=== PATIENT | female | born 1985 | race Hispanic/Latino ===

== ENCOUNTER 2017-03-11 11:44 | Outpatient (CLI) | payer MEDICAID ==
[2017-03-11 12:11] VITALS: BP 109/59
--- NOTE | 2017-03-11 13:24 | Event Note ---
Date: 03/11/17 BPP 6/8 Reactive NST total score 8/10 Pt d/c home with specific instructions for FKC, hydration, rest. Call with ctx, LOF, bleeding IOL scheduled Pt is aware.
--- NOTE | 2017-03-11 14:06 | Ultrasound Report ---
BIOPHYSICAL PROFILE: INDICATION: well being. COMPARISON: None similar. TECHNIQUE: Transabdominal ultrasound with Doppler interrogation. 0 - breathing movements 2 - movements 2 - posture and tone 2 - Qualitative amniotic fluid volume 6 - TOTAL SCORE OF POSSIBLE 8 Heart Rate (bpm) 124
--- NOTE | 2017-03-11 14:07 | Ultrasound Report ---
OB LIMITED INDICATION: well being. COMPARISON: None similar at this institution. TECHNIQUE: Transabdominal grayscale ultrasound with Doppler interrogation. Gestation: Adames Position: Cephalic Amniotic Fluid: WNL (7-24 cm) RAGHAVENDRA = 13.7 cm Heart Rate: 134 BPM
== END 2017-03-11 13:30 | disposition home or self-care (01) ==
LOC: TRG 11:44
PROVIDERS: ATTEND Obstetrics & Gynecology
DX: O48.0 Post-term pregnancy (principal); Z3A.41 41 weeks gestation of pregnancy
CPT/HCPCS: 59025; 76815; 76819

== ENCOUNTER 2017-03-12 11:47 | Inpatient (IN) | payer MEDICAID ==
[2017-03-12] MEDS ORDERED: ePHEDrine SULFATE IV PRN ×2 (11:50→13:48)
[2017-03-12] MEDS ORDERED: MINERAL OIL PO PRN (11:50)
[2017-03-12] MEDS ORDERED: ZOFRAN IV PRN (11:50)
[2017-03-12] MEDS ORDERED: XYLOCAINE 2% INFILTRATI ONE (11:50)
[2017-03-12] MEDS ORDERED: BRETHINE SUB-Q PRN (11:50)
[2017-03-12] MEDS ORDERED: SUBLIMAZE IV PRN (11:50)
[2017-03-12] MEDS ORDERED: PITOCin/NS 20 UNIT/1000ML DRIP 20 UNITS/1,000 ML BAG IV SCH (12:00)
--- NOTE | 2017-03-12 12:01 | History and Physical Report ---
History of Present Illness Date of examination: 03/12/17 (41w in early labor) Date of admission: 03/12/17 11:48 Chief complaint: spotting and contractions History of present illness: Past History : 4 Term Births: 3 Living Children: 3 Para: 3 # 1 Delivery date: 2004 Weeks Gestation: term Delivery type: vac Anesthesia type: epidural Delivery location: [facility] Infant Sex: Male weight: 9-2 Comments: vacuum extraction # 2 Delivery date: 2006 Weeks Gestation: term Delivery type: Anesthesia type: epidural Delivery location: [facility] Sex: Female weight: 9-12 Comments: denies complications # 3 Delivery date: 2007 Weeks Gestation: term Delivery type: Anesthesia type: epidural Delivery location: [facility] Sex: Male weight: 9-0 Comments: denies complication delivered this baby Past Medical History: Anxiety Depression Past Surgical History: Negative Past Surgical History Past Medical History 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 of genital herpes: no Partner hx. of genital herpes: no Rash, Viral, or Febrile illness since last LMP? no Varicella/Chicken Pox Status: Previous Disease TB Risk: no Genetic History Congenital Heart Defect: Mom: no Dad: no Manolo Disease: Mom: no Dad: no Thalassemia Mom: no Dad: no Neural Tube Defect Mom: no Dad: no Down's Syndrome Mom: no Dad: no Carlton-Sachs Mom: no Dad: no Sickle Cell Disease/Trait Mom: no Dad: no Hemophilia Mom: no Dad: no Muscular Dystrophy Mom: no Dad: no Cystic Fibrosis Mom: no Dad: no [place] Chorea Mom: no Dad: no Mental Retardation Mom: no Dad: no Fragile X Mom: no Dad: no Other Genetic/Chromosomal Disorder Mom: no Dad: no Child w/other defect Mom: no Dad: no Enviromental Exposures Xray Exposure: no Medication, drug, or alcohol use since LMP: no Chemical/Other Exposure: no Exposure to Cat Liter: no Hx of Parvovirus (Fifth Disease): no Occupational Exposure to Children: none Active Medications (reviewed today): None Current Allergies (reviewed today): No known allergies Laboratory Results Date/Time Collected: 09/03/2016 Routine Urinalysis Leukocytes: negative Nitrite: negative Urobilinogen: negative Protein: Negative Blood: negative Ketone: negative Bilirubin: negative Glucose: Negative Urine HCG: positive Review of Systems General Denies fever, chills, sweats, anorexia, fatigue, weakness, malaise, weight loss and sleep disorder. Denies nausea, vomiting, headache, swelling of legs, abdominal pain, vaginal discharge, vaginal bleeding and contractions. Denies vaginal discharge, incontinence, dysuria, hematuria, urinary frequency, amenorrhea, menorrhagia, abnormal vaginal bleeding, pelvic pain, genital sores, decreased libido, painful periods, painful sex, urinary urgency, hot flashes, vaginal dryness, vaginal itching and vaginal odor. CV Denies chest pains, palpitations, syncope, dyspnea on exertion, orthopnea, PND and peripheral edema. Resp Denies cough, dyspnea at rest, excessive sputum, hemoptysis, wheezing and pleurisy. GI Denies nausea, vomiting, diarrhea, constipation, change in bowel habits, abdominal pain, melena, hematochezia, jaundice, gas/bloating, indigestion/ heartburn, dysphagia and odynophagia. Endo Denies cold intolerance, heat intolerance, polydipsia, polyphagia, polyuria and unusual weight change. Breast Denies left breast lump, right breast lump, nipple discharge, bloody discharge from nipple, breast pain, abnormal mammogram and breast enlargement. MS Denies back pain, joint pain, joint swelling, muscle cramps, muscle weakness, stiffness, arthritis, sciatica, restless legs, leg pain at night and leg pain with exertion. Derm Denies rash, itching, dryness and suspicious lesions. Neuro Denies paralysis, paresthesias, headache, seizures, tremors, vertigo, transient blindness, frequent falls, frequent headaches and difficulty walking. Psych Denies depression, anxiety, irritability and mood swings. Eyes Denies blurring, diplopia, irritation, discharge, vision loss, eye pain and photophobia. ENT Denies earache, ear discharge, tinnitus, decreased hearing, nasal congestion, nosebleeds, sore throat and hoarseness. Allergy Denies urticaria, allergic rash, hay fever and recurrent infections. Heme Denies abnormal bruising, bleeding and enlarged lymph nodes. Past History - Obstetrical History Expected Date of Delivery: 03/05/17 Actual Gestation: 41 Week(s) 0 Day(s) : 4 Para: 3 Hx # Term Pregnancies: 3 Number of Living Children: 3 Medications and Allergies Allergies Allergy/AdvReac Type Severity Reaction Status Date / Time No Known Allergies Allergy Verified 03/11/17 11:49 Home Medications Medication Instructions Recorded Confirmed Last Taken Type No Known Home Medications [No 03/12/17 03/12/17 Unknown History Reported Home Medications] - Physical Exam Breasts: Positive: deferred Cardiovascular: Regular rate Lungs: Positive: Clear to auscultation, Normal air movement Abdomen: Positive: normal appearance, soft, normal bowel sounds Genitourinary (Female): Positive: normal external genitalia Vulva: both: normal Vagina: Positive: normal moisture Uterus: Positive: normal size, normal contour Anus/Rectum: Positive: normal perianal skin Extremities: Positive: normal Deep Tendon Reflex Grade: Dull/Diminished +1 - Obstetrical FHR: category 1 Uterine Contraction Monitor Mode: External Cervical Dilatation: 4 Cervical Effacement Percentage: 70 station: -3 Uterine Contraction Pattern: Irregular Uterine Contraction Intensity: Mild Results Result Diagrams: 03/12/17 12:15 All other labs normal. Lab Monitoring, Entry, and Tracking Initial Lab: TEST VALUE DATE REVIEWED Blood Type: O+ 08/13/2016 D (Rh) Type: + 08/13/2016 Antibody screen: negative 08/13/2016 Hgb: 11.6 08/13/2016 Hct: 34.2 08/13/2016 Rubella: immune 08/13/2016 VDRL: negative 08/13/2016 HBsAg: negative 08/13/2016 Laboratory Data-Patient Name: KIMI WILSON Test Date Result Blood Type Rh 08/13/2016 + Antibody Screen Rubella 08/13/2016 Serology (RPR) 08/13/2016 HBsAg 08/13/2016 negative Hemoglobin 12/03/2016 10.9 Hematocrit 12/03/2016 33.3 Platelets Chlamydia DNA 09/03/2016 Negative GC DNA/Culture 09/03/2016 Urine Culture Group B Strep cult PAP HIV 10/22/2016 negative AFP/Quad Screen 09/29/2016 Glucola Test 3hr GTT (Fasting) 1 hr 2 hr 3 hr [facility]-Patient Name:KIMI WILSON Test Date Result Varicella Ab Sickle Cell PPD Fibronectin Cystic Fibrosis Parvovirus TSH Free T4 Hepatitis C ALT AST Uric Acid Creatinine 24 hr Urine Protein BART Assessment and Plan 31yo @ 41 weeks in active labor GBS negative Orders in EMR Anticipate delivery
[2017-03-12] MEDS: LACTATED RINGERS 1,000 ML IV SCH ×2 (12:30→13:23)
[2017-03-12 12:32] LABS: Hematocrit 33.1 % (30.3-42.9); Hemoglobin 11.4 gm/dl (10.1-14.3); Mean Corpuscular HGB Conc 34 % (30-34); Mean Corpuscular Hemoglobin 33 pg (28-32); Mean Corpuscular Volume 95 fl (79-97); Platelet Count 218 K/mm3 (140-440); Red Cell Distribution Width 13.7 % (13.2-15.2); White Blood Count 8.5 K/mm3 (4.5-11.0)
[2017-03-12] MEDS: PITOCin/NS 30 UNIT/500ML 30 UNITS/500 ML BAG IV SCH ×2 (12:40→13:15)
[2017-03-12] MEDS ORDERED: ePHEDrine SULFATE ONE (13:10)
[2017-03-12] MEDS ORDERED: fentaNYL-BUPIV 2 MCG/ML-0.125% 200 MCG/100 ML BAG EPIDURAL ONE (13:35)
[2017-03-12] MEDS ORDERED: XYLOCAINE MPF 2% ONE (13:36)
[2017-03-12] MEDS ORDERED: NARCAN 2 MG/2 ML IV PRN (13:48)
--- NOTE | 2017-03-12 13:48 | Anesthesia Consultation ---
Anesthesia Consult and Med Hx Date of service: 03/12/17 - Airway Anesthetic Teeth Evaluation: Good ROM Head & Neck: Adequate Mental/Hyoid Distance: Adequate Mallampati Class: Class II Intubation Access Assessment: Probably Good - Pre-Operative Health Status ASA Pre-Surgery Classification: ASA2 Proposed Anesthetic Plan: Epidural, Spinal - Pulmonary Hx Asthma: No COPD: No Hx Pneumonia: No - Cardiovascular System Hx Hypertension: No - Central Nervous System Hx Seizures: No Hx Psychiatric Problems: No - Endocrine Hx Renal Disease: No Hx End Stage Renal Disease: No Hx Hypothyroidism: No Hx Hyperthyroidism: No - Hematic Hx Anemia: Yes (Prev preganancies) Hx Sickle Cell Disease: No - Other Systems Hx Alcohol Use: No
[2017-03-12] MEDS ORDERED: fentaNYL-BUPIV 2 MCG/ML-0.125% 200 MCG/100 ML BAG EPIDURAL SCH (14:00)
--- NOTE | 2017-03-12 16:48 | Procedure Note ---
OB Delivery Note - Delivery Date of Delivery: 03/12/17 Lathe Setup Operator: RUBIN ARIAS Estimated blood loss: 300cc - Vaginal Delivery presentation: vertex Delivery position: OA Intrapartum events: meconium Delivery induction: none Delivery augmentation: pitocin Delivery monitor: external FHT, external uterine Route of delivery: Delivery placenta: spontaneous Delivery cord: nuchal cord, 3 umbilical vessels Episiotomy: none Delivery laceration: 1st degree (no repair) Anesthesia: epidural Delivery comments: live born female over intact perineum CAN X 1 reduced, terminal meconium noted with delivery. Baby to mom's abdomen Slow to respond RT called to eval baby Cord blood obt Placenta and membrane del complete and intact, 3 vessel cord. Pitocin IVFs 7/8, EBL 300, Wgt 8-2. 1st degree lac on perineum, no repair. Mom and baby remain LDR stable. - Infant A at 1 minute: 7 at 5 minutes: 8 Gender: Female (wgt 8-2)
[2017-03-12] MEDS ORDERED: MILK OF MAGNESIA PO PRN (18:44)
[2017-03-12] MEDS ORDERED: BENADRYL PO PRN (18:44)
[2017-03-12] MEDS ORDERED: TUCKS PAD TP PRN (18:44)
[2017-03-12] MEDS ORDERED: DERMOPLAST TP PRN (18:44)
[2017-03-12] MEDS ORDERED: TYLENOL PO PRN (18:44)
[2017-03-12] MEDS ORDERED: PHENERGAN PO PRN (18:44)
[2017-03-12] MEDS ORDERED: LANSINOH TP PRN (18:44)
[2017-03-12] MEDS ORDERED: DULCOLAX PR PRN (18:44)
[2017-03-12] MEDS ORDERED: SODIUM CHLORIDE FLUSH SYRINGE 10 ML IV NR (19:00)
[2017-03-12] MEDS ORDERED: MOTRIN PO SCH (19:00)
[2017-03-12] MEDS ORDERED: MOTRIN PO PRN (19:22)
[2017-03-12] MEDS: MOTRIN PO SCH (19:29)
[2017-03-12] MEDS ORDERED: COLACE PO SCH (22:00)
[2017-03-13] MEDS: MOTRIN PO SCH ×2 (04:48→14:25)
[2017-03-13] MEDS ORDERED: BOOSTRIX IM ONE (06:00)
[2017-03-13 06:21] LABS: Hematocrit 29.7 % (30.3-42.9); Hemoglobin 10.1 gm/dl (10.1-14.3)
--- NOTE | 2017-03-13 08:07 | Progress Note ---
Assessment and Plan Patient doing well, w/o complaints. requests d/c home today. Janethti janet, H& H 10.1/29.7 (anemia d/t blood loss at delivery), VSSAF. Plan for d/c home with routine f/u in office. - Patient Problems (1) Spontaneous vaginal delivery Current Visit: Yes Status: Acute Subjective - Subjective Date of service: 03/13/17 Principal diagnosis: day #1 s/p Patient reports: appetite normal, voiding normally, pain well controlled, ambulating normally, no dizzy ambulation, no nauseated [place]: doing well, bottle feeding Objective - Vital Signs Latest vital signs: Vital Signs Temp Pulse Pulse Resp BP BP Pulse Ox 03/13/17 04:35 98.0 F 95 H 20 126/63 03/13/17 00:00 97.4 F L 76 20 116/53 03/12/17 19:30 98.3 F 85 20 129/69 03/12/17 19:29 20 03/12/17 16:47 65 123/56 03/12/17 16:17 97.9 F 75 125/68 120/57 03/12/17 15:52 86 120/57 03/12/17 15:46 99 H 116/59 03/12/17 15:34 95 H 99 03/12/17 15:29 78 98 03/12/17 15:24 102 H 99 03/12/17 15:19 92 H 98 03/12/17 15:17 80 115/58 03/12/17 15:14 79 97 03/12/17 15:09 87 97 03/12/17 14:48 93 H 119/56 03/12/17 14:30 79 100 03/12/17 14:25 74 98 03/12/17 14:20 71 98 03/12/17 14:18 72 119/57 03/12/17 14:15 69 98 03/12/17 14:10 70 99 03/12/17 14:05 76 100 03/12/17 14:00 68 99 03/12/17 13:55 72 99 03/12/17 13:50 75 99 03/12/17 13:48 18 123/71 03/12/17 13:45 72 123/71 98 03/12/17 13:43 85 125/63 03/12/17 13:41 74 121/56 03/12/17 13:40 75 98 03/12/17 13:39 62 119/56 03/12/17 13:37 80 120/62 03/12/17 13:35 67 120/62 98 03/12/17 13:33 71 117/64 03/12/17 13:31 72 116/58 03/12/17 13:30 71 126/57 98 03/12/17 13:27 71 114/61 03/12/17 13:26 119/63 03/12/17 13:25 73 107/65 03/12/17 13:24 69 99 03/12/17 13:23 68 119/63 03/12/17 13:21 80 123/92 03/12/17 13:19 72 98 03/12/17 12:30 18 03/12/17 12:05 97.6 F 18 155/65 03/12/17 11:58 88 155/65 99 Intake and Output 03/12/17 03/13/17 03/13/17 22:59 06:59 14:59 Intake Total 240 360 Output Total 1000 600 Balance -760 -240 Intake: Oral 240 360 Output: Urine 1000 600 Indwelling Catheter 200 Void 800 600 Other: Total, Intake Amount 240 120 Total, Output Amount 800 600 Estimated Blood Loss 300 - Exam Breasts: Present: normal Cardiovascular: Present: Regular rate Lungs: Present: Clear to auscultation, Normal air movement Abdomen: Present: normal appearance, soft, normal bowel sounds Vulva: both: laceration/episiotomy Uterus: Present: normal, firm, fundal height at umbilicus Extremities: Present: normal Incision: Present: normal, dry, intact - Labs Labs: Abnormal lab results 03/12/17 03/13/17 Range/Units 12:15 06:00 RBC 3.50 L (3.65-5.03) M/mm3 Hct 29.7 L (30.3-42.9) % MCH 33 H (28-32) pg
--- NOTE | 2017-03-13 08:09 | Discharge Summary ---
Providers - Providers Date of Admission: 03/12/17 11:48 Date of discharge: 03/13/17 (desires d/c home) Attending physician: DUKE GORE Primary care physician: DUKE GORE Hospitalization Reason for admission: active labor Delivery: Episiotomy: none Laceration: 1st degree Incision: normal, dry, intact Other procedures: none complications: none Discharge diagnosis: IUP at term delivered [place] baby: female Hospital course: uncomplicated vaginal Condition at discharge: Good Disposition: DISCHARGED TO HOME OR SELFCARE - Discharge Diagnoses (1) Spontaneous vaginal delivery Status: Acute Plan - Provider Discharge Summary Activity: routine, no sex for 6 weeks, no heavy lifting 4 weeks, no strenuous exercise Diet: routine Instructions: routine Additional instructions: [] Smoking cessation referral if applicable(refer to patient education folder for contact #) [] Refer to [facility]'s [facility] Booklet Call your doctor immediately for: * Fever > 100.5 * Heavy vaginal bleeding ( >1 pad per hour) * Severe persistent headache * Shortness of breath * Reddened, hot, painful area to leg or breast * Drainage or odor from incision. * Keep incision clean and dry at all times and follow doctor's instructions regarding bathing/showering - Follow up plan Follow up: DUKE GORE MD [Primary Care Provider] - 04/13/17 (Congratulations! Please call [phone] to schedule your visit in 4 weeks. Call for any questions or concerns.)
[2017-03-13] MEDS: NORCO 5/325 PO PRN ×2 (08:52→14:24)
--- NOTE | 2017-03-13 15:34 | Progress Note ---
Subjective Date of service: 03/13/17 Principal diagnosis: day #1 s/p Interval history: no anesthetic complications, ptn ambulating Objective - Constitutional Vitals: Vital Signs - 12hr 03/13/17 03/13/17 04:35 08:29 Temperature 98.0 F 97.7 F Pulse Rate [ 95 H 70 Right] Respiratory 20 20 Rate Blood Pressure 126/63 108/56 [Left Arm] - Labs CBC & Chem 7: 03/13/17 06:00 Labs: Abnormal lab results 03/13/17 Range/Units 06:00 Hct 29.7 L (30.3-42.9) %
[2017-03-13 18:28] VITALS: BP 108/58
[2017-03-13] MEDS ORDERED: M-M-R II VACCINE SUB-Q ONE (18:44)
== END 2017-03-13 18:10 | disposition home or self-care (01) | DRG 775 ==
LOC: TRG 11:47 → LD 11:48 → OB 17:51
PROVIDERS: ADMIT Obstetrics & Gynecology; ATTEND Obstetrics & Gynecology
PROC: 10E0XZZ Delivery of Products of Conception, External Approach (ICD-10-PCS; principal; 2017-03-12)
PROC: 00HU33Z Insertion of Infusion Device into Spinal Canal, Percutaneous Approach (ICD-10-PCS; 2017-03-12)
PROC: 3E0R3CZ (ICD-10-PCS; 2017-03-12)
DX: O69.81X0 Labor and delivery complicated by cord around neck, without compression, not applicable or unspecified (principal); O77.0 Labor and delivery complicated by meconium in amniotic fluid; O99.344 Other mental disorders complicating childbirth; F41.9 Anxiety disorder, unspecified; F32.9 Major depressive disorder, single episode, unspecified; O70.0 First degree perineal laceration during delivery; O90.81 Anemia of the puerperium; D64.9 Anemia, unspecified; Z3A.41 41 weeks gestation of pregnancy; Z37.0 Single live birth
CPT/HCPCS: 36415; 85014; 85018; 85027; 86592; 86850; 86900; 86901; 88307; 90715; J2590; J3010; J7120

== ENCOUNTER 2022-01-16 06:47 | Day surgery (SDC) | payer MEDICAID ==
[~2022-01-16 06:47] MED LIST: LACTATED RINGERS 1,000 ML IV SCH; MIDAZOLAM 2 MG/2 ML INJ IV NR; SCOPOLAMINE TRANSDERMAL PATCH 72 HR TD NR
--- NOTE | 2022-01-16 07:55 | Anesthesia Consultation ---
Anesthesia Consult and Med Hx Date of service: 01/16/22 - Airway Anesthetic Teeth Evaluation: Chipped (bottom left molar ) ROM Head & Neck: Adequate Mental/Hyoid Distance: Adequate Mallampati Class: Class II Intubation Access Assessment: Probably Good - Pulmonary Exam CTA: Yes - Cardiac Exam Cardiac Exam: RRR - Pre-Operative Health Status ASA Pre-Surgery Classification: ASA1 Proposed Anesthetic Plan: General - Pulmonary Hx Smoking: No Hx Asthma: No COPD: No Hx Pneumonia: No Hx Sleep Apnea: No - Cardiovascular System Hx Hypertension: No - Central Nervous System Hx Neuromuscular Disorder: No Hx Seizures: No Hx Psychiatric Problems: Yes (severe anxiety) - Gastrointestinal Hx Gastroesophageal Reflux Disease: Yes (occcasional with certain foods) - Endocrine Hx Renal Disease: No Hx Liver Disease: No Hx Non-Insulin Dependent Diabetes: No Hx Thyroid Disease: No - Hematic Hx Anemia: Yes (resolved) Hx Sickle Cell Disease: No - Other Systems Hx Alcohol Use: No Hx Substance Use: No Hx Cancer: No Hx Obesity: No - Additional Comments Anesthesia Medical History Comments: no hx of anesthetic complications
--- NOTE | 2022-01-16 07:56 | Anesthesia Day of Surgery ---
Anesthesia Day of Surgery - Day of Surgery Patient Examined: Yes Patient H&P Reviewed: Yes Patient is NPO: Yes
--- NOTE | 2022-01-16 08:07 | History and Physical Report ---
History of Present Illness Date of examination: 01/16/22 Date of admission: 01/16/2022 Chief complaint: Here for D&C History of present illness: Patient is a with missed AB at 7w4d presenting for dilation and curettage. Voices no complaints. Denies abdominal pain and vaginal bleeding. Past History Past Medical History: other (anxiety, depression) Past Surgical History: no surgical history Family/Genetic History: none Social history: no significant social history - Obstetrical History : 7 Para: 6 Hx # Term Pregnancies: 6 Number of Pregnancies: 0 Spontaneous Abortions: 0 Induced : 0 Number of Living Children: 6 Medications and Allergies Allergies Allergy/AdvReac Type Severity Reaction Status Date / Time No Known Allergies Allergy Verified 01/14/22 16:30 Home Medications Medication Instructions Recorded Confirmed Last Taken Type Sertraline [Zoloft] 50 mg PO QDAY 01/14/22 01/14/22 Unknown History Active Meds: Active Medications Lactated Ringer's (Lactated Ringers) 1,000 mls @ 100 mls/hr IV DIRECT BASILIA Stop: 01/16/22 23:59 Midazolam HCl (Midazolam 2 Mg/2 Ml Inj) 2 mg IV PREOP NR Stop: 01/16/22 23:01 Scopolamine (Scopolamine Transdermal Patch 72 Hr) 1 each TD PREOP NR Stop: 01/16/22 23:00 Review of Systems Psychiatric: anxiety - Physical Exam Cardiovascular: Regular rate Lungs: Positive: Normal air movement Abdomen: Positive: normal appearance, soft Extremities: Positive: normal Results All other labs normal. Assessment and Plan - Patient Problems (1) Missed Current Visit: Yes Status: Acute Plan to address problem: Patient previously counseled on expectant, medical and surgical management. Desires to proceed with surgical management Risk of procedure reviewed including pain, bleeding, damage to surrounding tissues and structures, uterine perforation, need for further procedures. Procedure consents signed Prophylactic antibiotics ordered
[2022-01-16] MEDS ORDERED: propofoL 200 MG/20 ML VIAL IV ONE ×2 (08:13→08:29)
[2022-01-16] MEDS ORDERED: fentaNYL 100 MCG/2 ML INJ ONE (08:13)
[2022-01-16] MEDS ORDERED: LIDOCAINE MPF (2%) 20 MG/1 ML VIAL 5 ML ONE (08:13)
[2022-01-16] MEDS ORDERED: METHYLERGONOVINE MALEATE 0.2 MG/ML VIAL IM ONE ×2 (08:14→08:55)
[2022-01-16] MEDS ORDERED: MIDAZOLAM 2 MG/2 ML INJ ONE (08:18)
[2022-01-16 08:20] LABS: Hematocrit 36.6 % (30.3-42.9); Mean Corpuscular HGB Conc 33 % (30-34); Mean Corpuscular Volume 91 fl (79-97); Platelet Count 257 K/mm3 (140-440); Red Blood Count 4.01 M/mm3 (3.65-5.03); Red Cell Distribution Width 13.7 % (13.2-15.2)
[2022-01-16] MEDS ORDERED: HYDROcodone/ACETAMINOPHEN 5-325 MG TAB PO PRN (08:31)
[2022-01-16] MEDS ORDERED: ONDANSETRON 4 MG/2 ML INJ IV PRN (08:31)
[2022-01-16] MEDS ORDERED: HYDROmorphone 1 MG/1 ML INJ IV PRN (08:31)
[2022-01-16] MEDS ORDERED: dexAMETHasone 20 MG/5 ML VIAL ONE (08:33)
[2022-01-16] MEDS ORDERED: SODIUM CHLORIDE 0.9% IRR 1,500 ML BOTTLE IR ONE (08:55)
[2022-01-16] MEDS ORDERED: ceFAZolin/Water 2 GM/20 ML 2 GM/20 ML SYRINGE IV NR (09:00)
[2022-01-16] MEDS ORDERED: KETOROLAC 30 MG/1 ML INJ ONE (09:04)
--- NOTE | 2022-01-16 09:19 | Post Operative Note ---
Pre-op diagnosis: missed , 7w4d Post-op diagnosis: same Findings: 8 week sized uterus mobile, no adnexal masses. Procedure: Exam under anesthesia, suction dilation and curettage Anesthesia: SHARMINA Surgeon: MIRA BLAKE Estimated blood loss: 50-100ml Pathology: list (products of conception) Specimen disposition: to lab Condition: stable Disposition: PACU
--- NOTE | 2022-01-16 09:20 | Operative Report ---
Operative Report Operative Report: Date of Procedure: 01/16/2022 Procedure: Dilation and curettage Pre-operative Diagnosis: missed Post-operative Diagnosis: same Surgeon: Sena Purvis MD Anesthesia: GETA Procedure Details Consent was obtained after explaining the risks and benefits of the procedure as documented. Patient was taken to the OR and was then placed in dorsal lithotomy position, and prepped and draped in the usual sterile manner. A sterile speculum was then inserted into the patient's vagina and a single tooth tenaculum was then placed on the anterior lip of the cervix. The cervix was then dilated to 21 Bulgarian size dilator and a size 7 mm suction catheter was then inserted. The contents of the uterus were emptied under electrical suction. A sharp curettage was then performed with gritty texture noted. A final pass of the suction catheter was then done. The instruments were removed from the patient's vagina and excellent hemostasis was noted. The patient tolerated the procedure well and was brought to the recovery room in stable condition. Findings: Normal external female genitalia. 8 week sized mobile uterus. No adnexal masses noted. Estimated Blood Loss: 50 ml Drains: None Total IV Fluids: LR 400 ml Specimens: Product of conception Implants: None Complications: None; patient tolerated the procedure well. Disposition: PACU - hemodynamically stable. Condition: stable
[2022-01-16 10:43] VITALS: BP 118/74
--- NOTE | 2022-01-16 11:22 | Discharge Summary ---
Providers - Providers Date of Admission: 01/16/2022 Date of discharge: 01/16/22 Attending physician: MIRA BLAKE MD Primary care physician: [employer]ICE MANAGER Hospitalization Reason for admission: D&C Condition: Good Hospital course: Patient to OR for D&C. See operative report for additional details. Tolerated procedure well. D/c home on POD #0 in stable condition. Disposition: 01 HOME / SELF CARE / HOMELESS Final Discharge Diagnosis (Prints w/discharge instructions): s/p dilation and curettage - Discharge Diagnoses (1) Missed Status: Acute Core Measure Documentation - Palliative Care Palliative Care/ Comfort Measures: Not Applicable - Core Measures Any of the following diagnoses?: none Exam - Constitutional Vitals: Temp Pulse Resp BP Pulse Ox 97.6 F 68 13 118/74 98 01/16/22 10:20 01/16/22 10:20 01/16/22 10:20 01/16/22 10:20 01/16/22 10:20 General appearance: Present: no acute distress - Respiratory Respiratory effort: normal - Cardiovascular Rhythm: regular - Extremities Extremities: no ischemia, No edema - Rectal Rectal Exam: normal exam-external/orifice Plan Activity: other (Nothing in the vagina for 4 weeks. ) Weight Bearing Status: Full Weight Bearing Diet: regular Special Instructions: other Follow up with: PRIMARY CAREMD [Primary Care Provider] - 7 Days MIRA BLAKE MD [Staff Physician] - 7 Days Forms: Outpatient Surgery DC Inst. Prescriptions: Methylergonovine [Methergine] 0.2 mg PO Q8HR 1 Days #3 tablet Ibuprofen [Motrin 800 MG tab] 800 mg PO Q8HR #30 tablet
--- NOTE | 2022-01-16 15:25 | Post Anesthesia Evaluation ---
- Post Anesthesia Evaluation Patient Participated: Yes Airway Patent: Yes Stable Respiratory Function: Yes Nausea/Vomiting: No Temp > 96.8F: Yes Pain Manageable: Yes Adequeate Hydration: Yes Anesthesia Complications: No
== END 2022-01-16 11:05 | disposition home or self-care (01) ==
LOC: OR 06:47
PROVIDERS: ATTEND Student in an Organized Health Care Education/Training Program
DX: O02.1 Missed abortion (principal); K21.9 Gastro-esophageal reflux disease without esophagitis; F32.9 Major depressive disorder, single episode, unspecified; F41.9 Anxiety disorder, unspecified; D64.9 Anemia, unspecified; Z3A.08 8 weeks gestation of pregnancy; Z79.899 Other long term (current) drug therapy; Z83.3 Family history of diabetes mellitus; Z98.890 Other specified postprocedural states
CPT/HCPCS: 36415; 59820; 85027; 86900; 86901; 88305; J1100; J1885; J2210; J2250; J2405; J2704; J3010; J3490; J7120